=== PATIENT | female | born 1980 | race Caucasian/White ===

== ENCOUNTER 2022-07-30 09:13 | Emergency (ER) | payer OTHER, SELFPAY ==
[2022-07-30 09:41] LABS: #Eosinphils 0.4 10x3/uL (0.0-0.5); #Monocytes 0.6 10x3/uL (0.0-1.1); #Neutrophils 3.9 10x3/uL (1.5-8.4); %Basophils 0.4 % (0.0-2.0); %Eosinophils 5.2 % (0.0-6.0); %Monocytes 7.1 % (0.0-10.0); %Neutrophils 50.2 % (40.0-75.0); Mean Corpuscular Volume 82.8 fl (81.6-98.3); Mean Platelet Volume 9.3 fl (7.4-10.4); Platelet Count 260 10x3/uL (150-450); RBC Distribution Width 12.5 % (11.5-14.5); Red Blood Cell (RBC) Count 4.48 10x6/uL (3.90-5.03); White Blood Cell (WBC) Count 7.9 10x3/uL (3.5-10.5)
[2022-07-30 10:21] LABS: ALT (SGPT) 20 U/L (8-55); AST (SGOT) 16 U/L (5-34); Albumin 4.2 g/dL (3.5-5.0); Alkaline Phosphatase 56 U/L (40-110); Anion Gap 14 mmol/L (10-20); BUN (Urea Nitrogen) 11 mg/dL (7.0-18.7); Bilirubin, Total 0.4 mg/dL (0.2-1.2); Calc. Creatinine Clearance 0 mL/min (70-130); Calcium 9.4 mg/dL (7.8-10.44); Carbon Dioxide 25 mmol/L (22-29); Chloride 103 mmol/L (98-107); Estimated GFR 98; Globulin 2.5 g/dL (2.4-3.5); Glucose 156 mg/dL (70-105); Potassium 3.2 mmol/L (3.5-5.1); Protein, Total 6.7 g/dL (6.0-8.3); Sodium 139 mmol/L (136-145)
[2022-07-30] MEDS ORDERED: Potassium Chloride 20 MEQ TAB ONE (10:41)
== END 2022-07-30 10:45 | disposition home or self-care (01) ==
LOC: CSHERS 09:13
DX: R07.9 Chest pain, unspecified (principal); E87.6 Hypokalemia
CPT/HCPCS: 71045; 80053; 84484; 85025; 93005

== ENCOUNTER 2022-12-16 06:26 | Emergency (ER) | payer OTHER ==
[2022-12-16] MEDS ORDERED: metroNIDAZOLE 500 MG/100 ML BAG ONE (08:02)
[2022-12-16 08:23] LABS: #Eosinphils 0.2 10x3/uL (0.0-0.5); #Monocytes 0.6 10x3/uL (0.0-1.1); #Neutrophils 4.1 10x3/uL (1.5-8.4); %Basophils 0.5 % (0.0-2.0); %Eosinophils 2.8 % (0.0-6.0); %Lymphocytes 23.1 % (18.0-47.0); %Monocytes 9.3 % (0.0-10.0); Hemoglobin 12.2 g/dL (12.0-15.5); Mean Corpuscular HGB CONC 34.8 g/dL (32.0-36.0); Mean Corpuscular Hemoglobin 28.2 pg (27.0-33.0); Mean Corpuscular Volume 81.3 fl (81.6-98.3); Mean Platelet Volume 8.7 fl (7.4-10.4); Platelet Count 254 10x3/uL (150-450); RBC Distribution Width 13.3 % (11.5-14.5); Red Blood Cell (RBC) Count 4.32 10x6/uL (3.90-5.03); White Blood Cell (WBC) Count 6.4 10x3/uL (3.5-10.5)
[2022-12-16 08:32] LABS: ALT (SGPT) 19 U/L (8-55); AST (SGOT) 18 U/L (5-34); Albumin 3.9 g/dL (3.5-5.0); Alkaline Phosphatase 60 U/L (40-110); Anion Gap 13 mmol/L (10-20); BUN (Urea Nitrogen) 9 mg/dL (7.0-18.7); Bilirubin, Total 0.6 mg/dL (0.2-1.2); Calc. Creatinine Clearance 0 mL/min (70-130); Calcium 8.8 mg/dL (7.8-10.44); Carbon Dioxide 22 mmol/L (22-29); Chloride 104 mmol/L (98-107); Estimated GFR 114; Globulin 3.4 g/dL (2.4-3.5); Glucose 119 mg/dL (70-105); Potassium 3.5 mmol/L (3.5-5.1); Protein, Total 7.3 g/dL (6.0-8.3); Sodium 135 mmol/L (136-145)
[2022-12-16] MEDS ORDERED: Clindamycin/D5W 900 MG in Premix Bag 1 BAG IVPB SCH (09:15)
[2022-12-16] MEDS ORDERED: Acetaminophen 500 MG TAB ONE (10:11)
== END 2022-12-16 10:39 | disposition home or self-care (01) ==
LOC: CSHERS 06:26
DX: N61.0 Mastitis without abscess (principal)
CPT/HCPCS: 80053; 83605; 85025; 87040; 93005; 94760; 96365; 96367; J3490

== ENCOUNTER 2023-02-02 11:28 | Emergency (ER) | payer OTHER ==
[2023-02-02] MEDS ORDERED: Dexamethasone 10 MG/ML VIAL ONE (12:51)
== END 2023-02-02 13:00 | disposition home or self-care (01) ==
LOC: CSHERS 11:28
DX: H60.92 Unspecified otitis externa, left ear (principal); R59.0 Localized enlarged lymph nodes; J45.909 Unspecified asthma, uncomplicated
CPT/HCPCS: 99283; J1100

== ENCOUNTER 2023-03-10 11:08 | Emergency (ER) | payer OTHER | END 2023-03-10 12:30 | disposition home or self-care (01) | LOC: CSHERS 11:08 | DX: R21 Rash and other nonspecific skin eruption (principal); J45.909 Unspecified asthma, uncomplicated | CPT/HCPCS: 99282 ==

== ENCOUNTER 2023-11-10 12:12 | Emergency (ER) | payer OTHER ==
[2023-11-10] MEDS ORDERED: Ibuprofen 200 MG TAB ONE (12:57)
== END 2023-11-10 14:19 | disposition home or self-care (01) ==
LOC: CSHERS 12:12
DX: S92.352A Displaced fracture of fifth metatarsal bone, left foot, initial encounter for closed fracture (principal); X50.1XXA Overexertion from prolonged static or awkward postures, initial encounter